=== PATIENT | female | born 2000 | race Two or more races ===

== ENCOUNTER 2024-12-18 15:13 | Emergency (ER) | payer MEDICAID, SELFPAY ==
[2024-12-18 16:39] VITALS: BP 98/57; PULSE 52; RESP 19; TEMP 36.7; O2SAT 100; BMI 19.5
--- NOTE | 2024-12-18 16:46 | XR_ITS ---
Examination: Foot, left, 3 views Technique: AP, oblique, lateral views foot, 3 views Date and time of exam: December 18, 2024, 1714 hours INDICATIONS: Patient fell today with injury to foot, foot pain. FINDINGS: Acute nondisplaced fractures base fifth metatarsal No foreign body No dislocation IMPRESSION: Acute fractures base fifth metatarsal
--- NOTE | 2024-12-18 16:46 | XR_ITS ---
EXAMINATION: Ankle, left 3 views. Technique: Ankle AP, oblique, lateral 3 views Date and time of exam: December 18, 2024, 1714 hours INDICATIONS: Patient fell today with injury of the ankle, ankle pain. FINDINGS: Acute fracture at the base of the fifth metatarsal No ankle fracture or dislocation IMPRESSION: Acute fracture at the base of the fifth metatarsal
--- NOTE | 2024-12-18 16:46 | PD.EDRME ---
Rapid Medical Screening Exam RME Arrival date/time: 12/18/24 15:13 This is a 24-year-old female that comes into the emergency room with complaints of left foot/ankle pain. Per patient she was playing with her nephew and her foot went into a hole and got stuck. Ppatient now complains of left ankle left foot pain I have greeted and performed a focused initial assessment of this patient. Initial appropriate labs ordered at this time. A comprehensive ED assessment and evaluation of the patient and analysis of all test and completion of medical decision making process will be conducted by additional ED provider. Chief Complaint: Ankle/Foot Injury Time Seen by Provider: 12/18/24 16:31 Vital signs: Vital Signs Temperature 98.1 F 12/18/24 16:39 Pulse Rate 52 L 12/18/24 16:39 Respiratory Rate 19 12/18/24 16:39 Blood Pressure 98/57 L 12/18/24 16:39 Pulse Oximetry (%) 100 12/18/24 16:39 Oxygen Delivery Method Room Air 12/18/24 16:39
[2024-12-18] MEDS: IBUPROFEN TAB 400 MG TABLET PO (16:49)
--- NOTE | 2024-12-18 18:03 | PD.EDANKLE ---
Lower Extremity Injury RME/HPI General Chief Complaint: Ankle/Foot Injury Stated Complaint: L FOOT INJURY TODAY WALKING DOWN STAIRS Time Seen by Provider: 12/18/24 16:31 Arrival date/time: 12/18/24 15:13 RME / HPI RME / HPI Narrative: 12/18/24 15:13 This is a 24-year-old female that comes into the emergency room with complaints of left foot/ankle pain. Per patient she was playing with her nephew and her foot went into a hole and got stuck. Ppatient now complains of left ankle left foot pain I have greeted and performed a focused initial assessment of this patient. Initial appropriate labs ordered at this time. A comprehensive ED assessment and evaluation of the patient and analysis of all test and completion of medical decision making process will be conducted by additional ED provider. See [facility] for Dr. Springer's HPI documentation. Related Data Previous Rx's ?Medication ?Instructions ?Recorded acetaminophen 300 mg-codeine 30 mg 2 tab PO Q8H PRN pain #20 tabs 12/18/24 tablet ibuprofen 400 mg tablet 400 mg PO Q8H PRN pain #30 tabs 12/18/24 lidocaine 5 % topical patch 1 patch topical QDAY PRN pain #30 12/18/24 (Lidoderm) ea Allergies Allergy/AdvReac Type Severity Reaction Status Date / Time No Known Allergies Allergy Verified 12/18/24 15:16 Review of Systems Review of Systems Systems Reviewed: All systems reviewed, normal except as documented Past Medical History Past Medical History CARDIAC: Negative Congestive Heart Failure RESPIRATORY: Negative Chronic Obstructive Pulmonary Disease (COPD) GENITOURINARY: Negative Renal Disease ENDOCRINE: Negative Diabetes Mellitus Type 1 or Diabetes Mellitus Type 2 Social History SMOKING STATUS: Never smoker ED Exam Narrative Physical exam: See [facility] for Dr. Springer's physical exam documentation. Course Quality Measures none Orders Category Date Time Status Crutches .NOW Care 12/18/24 18:51 Active Splint / Immobilizer STAT Care 12/18/24 18:51 Active XR ankle comp LT min 3V Stat Exams 12/18/24 16:46 Completed XR foot comp LT min 3V Stat Exams 12/18/24 16:46 Completed ACETAMINOPHEN w/COD 300-30 [Tylenol w/Cod #3] Med 12/18/24 18:50 Discontinued 2 tab PO X1 ONE Ibuprofen Tab [Motrin Tab] Med 12/18/24 16:45 Discontinued 400 mg PO X1 ONE Lidocaine 5% Patch Med 12/18/24 18:50 Discontinued 1 patch TOP X1 ONE Vital Signs Vital signs: Vital Signs Temperature 98.1 F 12/18/24 16:39 Pulse Rate 52 L 12/18/24 16:39 Respiratory Rate 19 12/18/24 16:39 Blood Pressure 98/57 L 12/18/24 16:39 Pulse Oximetry (%) 100 12/18/24 16:39 Oxygen Delivery Method Room Air 12/18/24 16:39 Extremity Injury, Lower MDM Narrative MDM Narrative:: This section includes all my notes and documentations, including HPI, PE, and ED course. Darrel Springer MD HPI: 24yo female here for left foot and ankle pain. 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 No other complaints reported. ROS: All negative except as documented in HPI. Physical Exam: General: Alert and oriented. No acute distress when remaining still. Eyes: Conjunctivae and lids clear. ENT: No nasal congestion. Neck: Supple. Lungs: No respiratory distress. Skin: Warm and dry. Neuro: Alert and oriented X 3. Left Ankle/Foot: Remarkable for lateral foot tenderness and edema and ecchymosis. I reviewed all diagnostic test results. My interpretation of the left ankle/foot x-rays is acute fracture at the base of the fifth metatarsal. At this point, diagnoses include: Fracture of left foot Treatment here included: Tylenol #3 Ibuprofen Lidocaine patch Postop shoe Crutches Based on my best medical judgment, made decision no further evaluation or treatment indicated at this time. Patient understands and agrees to the discharge instructions customized and printed, see below. Discharge Instructions from Dr. Springer printed for you: 1. Unfortunately, you broke your left foot where you have the bruising. See attached handouts. 2. Wear the postop shoe and no weightbearing until cleared by a doctor taking care of you. 3. Elevate above the waist level for 3 days is much as possible. 4. Apply ice for 20 minutes every 2-3 hours today and tomorrow. 5. Ibuprofen 400 mg every 6-8 hours today and tomorrow to decrease inflammation then as needed. 6. Lidocaine patches and Tylenol with codeine for pain. 7. See a private doctor on 12/19/2024 for recheck. Ask for referral to see orthopedic surgeon. You may need surgery. 8. Seek immediate medical care with worsening or with any concerns. Darrel Springer MD Patient data External records reviewed:: [facility] previous records (Per chart review, patient has no relevant previous ED visits.) Clinical information provided by:: patient Social determinants that could affect healthcare access:: none Patient has the following chronic illnesses:: none How is presenting disease/condition affected by chronic disease/condition?: no chronic disease Evaluation data The following diagnostics were reviewed and interpreted by me:: radiology exam(s) Lab and/or radiology exams considered but not ordered:: none Interpretation Summary: I reviewed all diagnostic test results. My interpretation of the left ankle/foot x-rays is acute fracture at the base of the fifth metatarsal. Medications / Prescriptions Medications or Prescriptions considered but not ordered:: none Medication administrations:: Medication Administration History Discontinued Medications Acetaminophen/Codeine Phosphate (Acetaminophen W/Cod 300-30 Tablet) 2 tab PO X1 ONE Stop: 12/18/24 18:51 Last Admin: 12/18/24 19:04 Dose: Not Given Documented By: OA Non-Admin Reason: Patient Refused Ibuprofen (Ibuprofen Tab 400 Mg Tablet) 400 mg PO X1 ONE Stop: 12/18/24 16:46 Last Admin: 12/18/24 16:49 Dose: 400 mg Documented By: OA Lidocaine (Lidocaine 5% 1 Patch) 1 patch TOP X1 ONE Stop: 12/18/24 18:51 Last Admin: 12/18/24 19:05 Dose: Not Given Documented By: OA Non-Admin Reason: Patient Refused Treatment here included: Tylenol #3 Ibuprofen Lidocaine patch Postop shoe Crutches Consultations Consultation(s) initiated? (list below): No Diagnosis Extremity Injury, Lower Differential Diagnosis: ankle sprain and strain, ankle fracture and other (Foot sprain, foot fracture) Most likely diagnosis given after review of the tests above:: Fracture of left foot Admission Indicated Admission indicated?: not indicated Explain why admission is indicated or not indicated:: With no condition needing emergent intervention, there was no indication for admission. Admission Request Was there a request for admission?: No Disposition Plan Disposition Plan: Discharge Discharge Attestation Discharge Attestation: The patient and all family members were given an opportunity to ask questions and understood the discharge instructions. Discharge instructions specifically effects, indications for sooner follow up or return to the emergency department, and the expected course of current diagnosis. Patient condition: Stable Discharge Plan Plan Patient Disposition: HOME (Self Care) Prescriptions/Referrals Prescriptions/Med Rec: New acetaminophen-codeine 300-30 mg tablet 2 tab PO Q8H MDD 6 PRN (Reason: pain) Qty: 20 0RF lidocaine [Lidoderm] 5 % adhesive patch,medicated 1 patch topical QDAY PRN (Reason: pain) Qty: 30 0RF Rx Instructions: leave on most painful area for up to 12 hrs ibuprofen 400 mg tablet 400 mg PO Q8H PRN (Reason: pain) Qty: 30 0RF Problem List Clinical Impression: Fracture of left foot Patient/Caregiver Discharge Instructions Discharge Activity: activity as tolerated Education Materials: Fifth Metatarsal Fx, ED Fracture, Foot Additional Instructions: Discharge Instructions from Dr. Springer printed for you: 1. Unfortunately, you broke your left foot where you have the bruising. See attached handouts. 2. Wear the postop shoe and no weightbearing until cleared by a doctor taking care of you. 3. Elevate above the waist level for 3 days is much as possible. 4. Apply ice for 20 minutes every 2-3 hours today and tomorrow. 5. Ibuprofen 400 mg every 6-8 hours today and tomorrow to decrease inflammation then as needed. 6. Lidocaine patches and Tylenol with codeine for pain. 7. See a private doctor on 12/19/2024 for recheck. Ask for referral to see orthopedic surgeon. You may need surgery. 8. Seek immediate medical care with worsening or with any concerns. Print Language: Kyrgyz Stand Alone Forms: Amy Award Info., Work/School Release, Patient Portal Info Letter
== END 2024-12-18 19:05 | disposition home or self-care (01) ==
LOC: SERX 19:13
PROVIDERS: Emergency Provider Emergency Medicine; PCP Family Medicine
DX: S92.902A Unspecified fracture of left foot, initial encounter for closed fracture (principal); X50.1XXA Overexertion from prolonged static or awkward postures, initial encounter
CPT/HCPCS: 73610; 73630; 99284; A9270